=== PATIENT | male | born 2000 | race Caucasian/White ===

== ENCOUNTER 2019-01-06 09:40 | Emergency (ER) | payer SELFPAY ==
[2019-01-06] MEDS: TETRACAINE 0.5% 4 ML OPH LEFT EYE (09:57)
[2019-01-06] MEDS: FLUORESCEIN STRIP LEFT EYE (09:57)
== END 2019-01-06 10:34 | disposition home or self-care (01) ==
LOC: FTE 09:40
DX: S05.02XA Injury of conjunctiva and corneal abrasion without foreign body, left eye, initial encounter (principal); F17.210 Nicotine dependence, cigarettes, uncomplicated; T65.891A Toxic effect of other specified substances, accidental (unintentional), initial encounter; X58.XXXA Exposure to other specified factors, initial encounter; Y92.89 Other specified places as the place of occurrence of the external cause
CPT/HCPCS: 99283